=== PATIENT | male | born 1970 | race Caucasian/White ===

== ENCOUNTER 2017-03-01 15:00 | Inpatient (IN) | payer OTHER, MEDICAID ==
[~2017-03-01] VITALS: Ht 185.4 cm; Wt 83.9 kg
--- NOTE | ~2017-03-01 | HP ---
Unit #: [id number] #: [id number] Patient: RYDER OSEGUERA [id number] [place] [address] [id number] MR#: [id number] NAME: RYDER OSEGUERA. ROOM: P174 Age: 47 Sex: M Admission Date: 04/26/2017 : 1970 Attending Physician: Naz Dunbar M.D. Admitting Physician: Naz Dunbar M.D. Primary Care Physician: Generic Doctor Not In System HISTORY AND PHYSICAL NOTE Ryder is a 47 year old admitted and discharged within the first 24 hours. He was not seen for an H & P. Dictated by... Lorena Biggs P.A.-C. for Emmanuel Nino/agueda TD: 04/26/2017 20:38 JOB #: [id number] HISTORY AND PHYSICAL Page 1 of 1 X Lorena Biggs HISTORY AND PHYSICAL
== END 2017-04-26 17:45 | disposition left against medical advice (07) | DRG 894 ==
LOC: P1E 04-26 14:15
DX: F10.20 Alcohol dependence, uncomplicated (principal)